=== PATIENT | male | born 1980 | race Caucasian/White ===

== ENCOUNTER 2023-04-12 15:01 | Emergency (ER) | payer BC ==
[~2023-04-12] VITALS: Ht 177.8 cm; Wt 95.0 kg
[2023-04-12 15:10] VITALS: BP 159/96
[2023-04-12 15:30] VITALS: BP 130/78
[2023-04-12 16:00] VITALS: BP 123/74
[2023-04-12 16:30] VITALS: BP 146/88
[2023-04-12] MEDS ORDERED: BACTRIM DS1 TAB PO (16:30)
[2023-04-12 16:42] VITALS: BP 146/88
== END 2023-04-12 16:47 | disposition home or self-care (01) | DRG 605 ==
LOC: ED 15:01
PROC: 0JQK3ZZ Repair Left Hand Subcutaneous Tissue and Fascia, Percutaneous Approach (ICD-10-PCS; principal; 2023-04-12)
DX: S61.412A Laceration without foreign body of left hand, initial encounter (principal); I10 Essential (primary) hypertension; W27.8XXA Contact with other nonpowered hand tool, initial encounter; Y92.89 Other specified places as the place of occurrence of the external cause; Y99.0 Civilian activity done for income or pay